=== PATIENT | female | born 1945 | race Caucasian/White ===

== ENCOUNTER 2018-08-09 08:17 | Emergency (ER) | payer MEDICARE, BC ==
[2018-08-09 08:46] VITALS: BP 148/69
--- NOTE | 2018-08-09 09:04 | UC ---
Dizzy HPI HPI Summary: CHIEF COMPLAINT and HPI: This is a 72-year-old female who is normally active and exercises, who notes inability to walk without assistance. Over the past 3 days, she has been unable to walk without assistance. This is an intermittent condition. She denies symptoms of vertigo. She denies chest pain or shortness of breath. She notes that this unsteadiness is the feeling that she might fall and this occurred for 2 hours yesterday. She has also been more "tired." Vital signs in the urgent care center are blood pressure 167/74, temperature 101.6 and pulse 97. Orthostatics were immediately taken and the patient was orthostatic. EKG suggests a atrial fibrillation with a slow ventricular response. VITAL SIGNS & SaO2 REVIEWED. Within normal limits unless noted here. NURSES NOTE REVIEWED."pt with three days of not feeling right, dizzy, nauseous , one bout of diarrhea a day ago. Pt states she has a hx of hypertension and seizures." - History Of Current Complaint Chief Complaint: UCDizziness Stated Complaint: DIZZINESS Time Seen by Provider: 08/09/18 08:22 Pain Intensity: 3 - Allergies/Home Medications Allergies/Adverse Reactions: Allergies Allergy/AdvReac Type Severity Reaction Status Date / Time Penicillins Allergy Rash Verified 08/09/18 08:38 phenytoin [From Dilantin] Allergy Rash Verified 08/09/18 08:38 Home Medications: Home Medications Amlodipine Bes/Olmesartan Med [Sergio 5-20 mg Tablet] 1 tab PO DAILY 08/09/18 [ History Confirmed 08/09/18] Famotidine 40 mg PO DAILY 08/09/18 [History Confirmed 08/09/18] Famotidine [Pepcid] 1 tab PO DAILY 08/09/18 [History Confirmed 08/09/18] Glucosamine Sulfate Dipot Chlr [Glucosamine] 1 tab PO DAILY 08/09/18 [History Confirmed 08/09/18] Lacosamide [Vimpat] 400 mg PO DAILY 08/09/18 [History Confirmed 08/09/18] Multivitamin [Multivitamins] 1 tab PO DAILY 08/09/18 [History Confirmed 08/09/18 ] Pravastatin (NF) [Pravachol (NF)] 40 mg PO 1700 08/09/18 [History Confirmed 02/17] Viactin 1 tab PO DAILY 08/09/18 [History Confirmed 08/09/18] Zoledronic/Mannitol 5 MG/100ML [Reclast 5 MG/100ML] 1 dose IV SEE INSTRUCTIONS 08/09/18 [History Confirmed 08/09/18] PMH/Surg Hx/FS Hx/Imm Hx - Additional Past Medical History Additional PMH: PAST MEDICAL HISTORY- seizures, elevated cholesterol, ischemic colitis. CHRONIC and RECURRENT HEALTH PROBLEM LIST REVIEWED. Information relevant to present complaint: breast cancer. VISIT HISTORY REVIEWED. MEDICATIONS & ALLERGIES REVIEWED. PCN allergy. HYPERTENSION STATUS: amlodipine FAMILY HISTORY: Positive for: hypertension, cardiovascular disease. SOCIAL HISTORY: non-smoker, lives in [facility], is active and exercises. Previously Healthy: Yes - Surgical History Surgical History: Yes Surgery Procedure, Year, and Place: mastectomy, - Social History Alcohol Use: Occasionally Substance Use Type: None Smoking Status (MU): Never Smoked Tobacco Review of Systems All Other Systems Reviewed And Are Negative: Yes Constitutional: Positive: Fever Eyes: Negative: Blurred Vision ENT: Positive: Negative Respiratory: Positive: Negative. Negative: Shortness Of Breath Cardiovascular: Positive: Negative. Negative: Palpitations Gastrointestinal: Positive: Abdominal Pain - mild lower abdominal Genitourinary: Positive: Negative, Dysuria Is Patient Immunocompromised?: No Physical Exam - Summary Physical Exam Summary: Appearance: The patient is well-appearing, is in no pain or distress, and is well-nourished. Eyes: Conjunctiva are clear. Pupils are equal and reactive to light and accommodation. Extra ocular muscle movement is intact. ENT: The hearing is grossly normal, the pharynx is normal, and the TMs are normal. There is no muffled or hoarse voice. No stridor. Neck: The neck is supple and there is no lymphadenopathy. No bruits. Respiratory: The chest is non-tender to palpation and without crepitus. The lungs are clear, there are normal breath sounds, and there is no respiratory distress. No wheezes, rales or rhonchi. Cardiovascular: Heart sounds reveal a regular rate and rhythm. A harsh 2/6 systolic murmur is noted over the anterior chest. This does not radiate. There are no carotid bruits or thrills. Circulation is grossly intact. Abdomen: The abdomen is soft and there is slight lower abdominal discomfort. There is no organomegaly. Bowel sounds are present and within normal limits. No point tenderness at McBurneys point. No CVA tenderness. Musculoskeletal: Strength is intact. The patient moves all extremities. Neurological: The patient is alert. Motor and sensory are examination grossly intact. Speech is normal. Psychological: The patient displays age appropriate behavior, and is conversant. GCS=15. Skin: Negative for rashes. Vital Signs: Initial Vital Signs Temp 101.6 F 08/09/18 08:24 Pulse 94 08/09/18 08:24 Resp 18 08/09/18 08:24 BP 167/74 08/09/18 08:24 Pulse Ox 97 08/09/18 08:24 Dizzy Course/Dx - Course Course Of Treatment: MEDICAL DECISION MAKING and PLAN: This is a 72-year-old female who is normally active and exercises, who notes inability to walk without assistance. Over the past 3 days. This is an intermittent condition. She denies symptoms of vertigo. She denies chest pain or shortness of breath. She notes that this unsteadiness is the feeling that she might fall and this occurred for 2 hours yesterday. She has also been more "tired." Vital signs in the urgent care center are blood pressure 167/74, temperature 101.6 and pulse 97. Orthostatics were immediately taken and the patient was orthostatic. EKG suggests a atrial fibrillation with a slow ventricular response. Review of systems revealed an episode of diarrhea 3 days ago but nothing since then. Patient's past medical history includes seizures, hiatal hernia, one episode of ischemic colitis, GERD, and left breast cancer with mastectomy. She denies any cardiac history, although there is a family history of hypertension and cardiovascular disease. Physical examination shows a 2/6 harsh systolic murmur when she is supine. There is no chest pain or shortness of breath. Mild lower abdominal discomfort. The lungs are clear. The EKG shows inferior nonspecific ST-T changes and irregular atrial activity. Elevated temperature is noted. I discussed the patient's signs and symptoms with the patient and her son. Her history and EKG reading as well as her orthostasis is most consistent with new onset atrial fibrillation. Her new onset murmur is also of concern. The patient will be transferred to the emergency department by ambulance. Her vital signs are stable. MEDICATIONS REVIEWED. HYPERTENSION STATUS REVIEWED WITH PATIENT IF blood pressure is above 120/80. - Differential Dx/Diagnosis Differential Diagnosis/HQI/PQRI: Dysrhythmia, Vasovagal Reaction, Other Provider Diagnosis: Atrial dysrhythmia, Orthostatic dizziness, Murmur, heart Discharge - Sign-Out/Discharge Documenting (check all that apply): Patient Departure All imaging exams completed and their final reports reviewed: No Studies - Discharge Plan Condition: Stable Disposition: TRANS HIGHER LVL OF CARE FAC Referrals: No Primary Care Phys,NOPCP [Primary Care Provider] - Additional Instructions: WE DISCUSSED: At this time. I note that the possibility that you have a new onset of an irregular heartbeat, called atrial fibrillation. I have also noted a heart murmur that may be new. He will also have an elevated temperature and your blood pressure is slightly high. You are being transferred to the emergency department for further evaluation and treatment as needed. - Billing Disposition and Condition Condition: STABLE Disposition: Trans Higher Lvl of Care Fac
== END 2018-08-09 09:49 | disposition short-term general hospital (02) ==
LOC: UCEAST 08:17
DX: I49.9 Cardiac arrhythmia, unspecified (principal); R42 Dizziness and giddiness; R01.1 Cardiac murmur, unspecified; R11.0 Nausea; E78.5 Hyperlipidemia, unspecified; I10 Essential (primary) hypertension; K55.9 Vascular disorder of intestine, unspecified; R56.9 Unspecified convulsions; Z88.0 Allergy status to penicillin; Z88.8 Allergy status to other drugs, medicaments and biological substances
CPT/HCPCS: 99203; G0463

== ENCOUNTER 2018-08-09 10:10 | Observation (INO) | payer MEDICARE, BC ==
--- NOTE | 2018-08-09 10:41 | ED ---
Dizziness - HPI Summary HPI Summary: This patient is a 72 year old F brought in by ambulance to [facility] from [facility] accompanied by her son with a chief complaint of one bout of diarrhea and fatigue for the past three days that worsened last night and this morning with sudden intermittent bouts of dizziness lasting a couple of hours. She states last night she had a bout of dizziness that lasted a few hours with difficulty walking. Patient additionally reports lower abdominal pain yesterday that is currently resolved. This morning she is unable to walk without assistance due to dizziness. Reports concern for new a-fib at [facility] today. Dizziness accompanied by nausea. Denies lightheadedness, headache, CP, and SOB. Symptoms currently resolved with 4mg of Zofran provided by EMS. PMHx of a cavernoma causing seizures that are controlled with Vimpat. Son reports an MRI taken a couple weeks ago that reveals, "fresh bleeding". Regular medications not taken yet. - History Of Current Complaint Chief Complaint: EDGeneral Stated Complaint: DIZZINESS/ABD PAIN/AFIB PER EMS AND NURSE Time Seen by Provider: 08/09/18 10:12 Hx Obtained From: Patient, EMS Onset/Duration: Resolved Timing: Intermittent Episode Lasting - hours Character: Dizzy Aggravating Factor(s): Nothing Alleviating Factor(s): Other - EMS tx Associated Signs And Symptoms: Positive: Nausea, Unsteady Gait, Fever, Inability to Walk. Negative: Chest Pain, SOB - Allergies/Home Medications Allergies/Adverse Reactions: Allergies Allergy/AdvReac Type Severity Reaction Status Date / Time ciprofloxacin Allergy Rash Verified 08/09/18 10:31 Penicillins Allergy Rash Verified 08/09/18 10:22 phenytoin [From Dilantin] Allergy Rash Verified 08/09/18 10:22 Home Medications: Home Medications Lacosamide [Vimpat] 100 mg PO BID 08/09/18 [History Confirmed 08/09/18] Pantoprazole TAB * [Protonix TAB*] 40 mg PO DAILY 08/09/18 [History Confirmed ] PMH/Surg Hx/FS Hx/Imm Hx Cardiovascular History: Reports: Hx Hypertension GI History: Reports: Hx Hiatal Hernia, Other GI Disorders - colitis Neurological History: Reports: Hx Seizures, Other Neuro Impairments/Disorders - cavernoma - Cancer History Cancer Type, Location and Year: breast CA - Surgical History Surgery Procedure, Year, and Place: mastectomy, Infectious Disease History: No Infectious Disease History: Denies: Traveled Outside the [place] in Last 30 Days - Family History Known Family History: Positive: Hypertension - Social History Alcohol Use: Weekly Substance Use Type: Reports: None Smoking Status (MU): Never Smoked Tobacco Review of Systems Positive: Fever, Fatigue Negative: Chest Pain Negative: Shortness Of Breath Positive: Abdominal Pain, Diarrhea, Nausea Neurological: Other - dizziness All Other Systems Reviewed And Are Negative: Yes Physical Exam - Summary Physical Exam Summary: Appearance: Well-appearing, Well-nourished, lying in bed comfortably Skin: Warm, dry, no obvious rash Eyes: sclera anicteric, no conjunctival pallor ENT: mucous membranes moist, pharynx appears normal Neck: Supple, nontender Respiratory: Clear to auscultation, no signs of respiratory distress Cardiovascular: Normal S1, S2. No murmurs. Normal distal pulses in tibial and radial bilaterally. Abdomen: Soft, nontender, normal active bowel sounds present Musculoskeletal: Normal, Strength/ROM Intact Neurological: A&Ox3, awake and alert, mentation is normal, speech is fluent and appropriate, no ataxia Psychiatric: affect is normal, does not appear anxious or depressed Triage Information Reviewed: Yes Vital Signs On Initial Exam: Initial Vitals Temp Pulse Resp BP Pulse Ox 101.4 F 86 26 142/73 99 08/09/18 10:17 08/09/18 10:17 08/09/18 10:17 08/09/18 10:17 08/09/18 10:17 Vital Signs Reviewed: Yes - Diablo Coma Scale Best Eye Response: 4 - Spontaneous Best Motor Response: 6 - Obeys Commands Best Verbal Response: 5 - Oriented Coma Scale Total: 15 Diagnostics - Vital Signs Vital Signs Temp Pulse Resp BP Pulse Ox 08/09/18 10:18 86 18 142/73 99 08/09/18 10:17 101.4 F 86 11 142/73 99 - Laboratory Result Diagrams: 08/10/18 08:47 08/10/18 08:47 Lab Statement: Any lab studies that have been ordered have been reviewed, and results considered in the medical decision making process. - Radiology CXR Radiology Interpretation Completed By: Radiologist Summary of Radiographic Findings: FINDINGS CONSISTENT WITH COPD, NO EVIDENCE FOR ACUTE DISEASE. ED Physician has reviewed this report. - CT Brain MRI CT Interpretation Completed By: Radiologist Summary of CT Findings: Approximately 2.2 cm lesion within the right frontal lobe, appearance most. suggestive of cavernoma. Presence of small foci of T1 hyperintensity within the. lesion and adjacent vasogenic edema are suggestive of associated. recent/subacute hemorrhage. ED Physician has reviewed this report. - EKG 1044 Cardiac Rate: NL - 89 BPM EKG Rhythm: Sinus Rhythm EKG Comparison: Other - A-fib at 92 BPM at 0829 taken at [facility] 08/09/18 Summary of EKG Findings: NSR at 89 BPM, P waves, QRS complex, and T waves are within normal limits, T waves and intervals are normal, no ischemic changes. This is a normal EKG. Re-Evaluation - Re-Evaluation 1 Re-Evaluation Time: 13:35 Change: Unchanged - Patient remains nauseaous and dizzy. Unable to ambulate without assistance. Dizzy Course/Dx - Course Course Of Treatment: This is a 72-year-old woman with a 2 to three-day history of transient diarrhea followed by intermittent vertigo with some gait ataxia and now fever. With respect to the fever, her urinalysis does show evidence of infection and I suspect this is the source of the fever. Chest x-ray is clear. Lactate is low and the patient does not appear toxic or septic. With respect to her vertigo it clearly seems a peripheral nature based on her history and physical exam. There was also some concern that she may have had atrial fibrillation, but I have reviewed the tracing from [facility] care and this is clearly a sinus rhythm which the machine misinterpreted. I do not believe the patient had atrial fibrillation and she certainly is not atrial fibrillation now. She is getting a dose of IV Rocephin and some oral meclizine and we will see how she does with her gait. She may ultimately need to be admitted for observation if she is unable to walk. Upon re-evaluation patient's symptoms persist and she is unable to ambulate without assistance. At 13:41 Dr. Reyez , hospitalist, agrees to admit patient for observation, he recommends getting an MRI to rule out further bleeding. Brain MRI reveals, "Approximately 2.2 cm lesion within the right frontal lobe, appearance most. suggestive of cavernoma. Presence of small foci of T1 hyperintensity within the. lesion and adjacent vasogenic edema are suggestive of associated. recent/subacute hemorrhage." Case discussed with Dr. Kwong, who is now covering hospitalist at 1817. He recommends consultation with Dr. Mcgowan, neurology. Case discussed with Roslyn' DONNA who will have Roslyn get back to Dr. Kwong. - Diagnoses Provider Diagnoses: UTI (urinary tract infection), Vertigo - Provider Notifications Discussed Care Of Patient With: Abdon Reyez Time Discussed With Above Provider: 13:41 Instructed by Provider To: Admit As Inpatient Discharge - Sign-Out/Discharge Documenting (check all that apply): Patient Departure - admit Patient Received Moderate/Deep Sedation with Procedure: No - Discharge Plan Condition: Stable Disposition: ADMITTED TO [facility] - Billing Disposition and Condition Condition: STABLE Disposition: Admitted to [facility] - Attestation Statements Document Initiated by Jamiee: Yes Documenting Scribe: Fadia Nix Provider For Whom Karelibe is Documenting (Include Credential): Sheldon Lino MD Scribe Attestation: IFadia, scribed for Sheldon Lino MD on 08/12/18 at 0948. Scribe Documentation Reviewed: Yes Provider Attestation: The documentation as recorded by the karelibeFadia accurately reflects the service I personally performed and the decisions made by me, Sheldon Lino MD Status of Scribe Document: Viewed
[2018-08-09 10:59] LABS: Urine Appearance Cloudy; Urine Bacteria Absent (Absent); Urine Bilirubin Negative (Negative); Urine Blood 2+ (Negative); Urine Color Yellow; Urine Glucose Negative (Negative); Urine Ketones Negative (Negative); Urine Nitrite Negative (Negative); Urine Protein Negative (Negative); Urine Red Blood Cell 2+(6-10/hpf) (Absent); Urine Specific Gravity 1.017 (1.010-1.030); Urine Squamous Epithelial Cell Present (Absent); Urine Urobilinogen Negative (Negative); Urine White Blood Cell 3+(>20/hpf) (Absent)
[2018-08-09] MEDS ORDERED: cefTRIAXone(*) 1 GM in NS 0.9% 50 ML* 50 ML IVPB ONE (11:02)
[2018-08-09 11:03] LABS: ABS Lymphocytes 0.9 10^3/ul (1.0-4.8); ABS Monocytes 0.9 10^3/ul (0-0.8); ABS Neutrophils 10.4 10^3/ul (1.5-7.7); Eosinophil % 0.1 %; Hematocrit 34 % (35-47); Hemoglobin 11.2 g/dL (12.0-16.0); Mean Corpuscular HGB Conc 33 g/dL (31-36); Mean Corpuscular Hemoglobin 31 pg (27-31); Mean Corpuscular Volume 92 fL (80-97); Mean Platelet Volume 8.4 fL (7.4-10.4); Platelet Count 211 10^3/uL (150-450); Red Blood Count 3.63 10^6 /uL (3.70-4.87); Red Cell Distribution Width 13 % (10.5-15); White Blood Count 12.2 10^3/uL (3.5-10.8)
[2018-08-09 11:23] LABS: Albumin 3.9 g/dL (3.2-5.2); Albumin/Globulin Ratio 1.4 (1-3); BUN/Creatinine Ratio 16.3 (8-20); C Reactive Protein 51.55 mg/L (<8.01); Calcium 9.1 mg/dL (8.6-10.3); EGFR African American 85.6 (>60); EGFR Non-African American 70.7 (>60); Globulin 2.8 g/dL (2-4); Magnesium 1.8 mg/dL (1.9-2.7); Potassium 3.9 mmol/L (3.5-5.0); Total Bilirubin 0.5 mg/dL (0.2-1.0); Total Protein 6.7 g/dL (6.4-8.9); Troponin I 0.01 ng/mL (<0.04)
[2018-08-09] MEDS ORDERED: Meclizine TAB* 12.5 MG PO ONE (12:03)
[2018-08-09 12:26] LABS: TSH (Thyroid Stimulating Horm) 0.65 mcIU/mL (0.34-5.60)
[2018-08-09] MEDS ORDERED: Magnesium Sulfate 2 GM IV* 2 GM/50 ML BAG IVPB ONE (14:50)
[2018-08-09] MEDS ORDERED: Lorazepam PYXIS KEY PRN (16:30)
[2018-08-09] MEDS ORDERED: LORazepam INJ* 2 MG/ML 1 ML VIAL IV PUSH STA (16:30)
[2018-08-09] MEDS ORDERED: Atorvastatin* 10 MG TAB PO SCH (17:00)
[2018-08-09] MEDS ORDERED: Lorazepam PYXIS KEY ONE (17:02)
--- NOTE | 2018-08-09 18:08 | HP ---
ADMITTING HISTORY AND PHYSICAL: DATE OF ADMISSION: 08/09/18 CHIEF COMPLAINT: Difficulty ambulating. 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 The following day; however, she felt that she was unable to walk without assistance given significant weakness and easy fatigability. Once again, this was intermittent in its symptomatology. She then began developing lower abdominal pain as well. She lastly presented with vertigo and this concerned her, which brought her to urgent care. In urgent care this morning, she was seen by the ER physician, who thought that she had atrial fibrillation on her EKG and was sent to the ER for specifically to be evaluated for atrial fibrillation. However, on my review, the rhythms both in the urgent care as well as in EMS as well as in our ER were normal sinus and no signs of atrial fibrillation were seen. Furthermore, the patient was complaining more of vertigo rather than any form of palpitations and was greatly concerned about being told that she did have some atrial fibrillation. 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 PAST SURGICAL HISTORY: Status post arthroscopic knee surgery and left elbow fracture status post spinning. ALLERGIES: PENICILLIN and DILANTIN, both of which she mentions causes her to "break out." CIPROFLOXACIN causes hives. FAMILY HISTORY: Her sister has IBS. Niece has Crohn's. Brother has melanoma. Father at the age of 66 due to a heart disease. Mother had a CVA at the age of 66. SOCIAL HISTORY: She denies any history of smoking, illicit drug use, or alcohol abuse. She lives in [place], the [facility] and mentions that she is here visiting her son since her just recently 2 months prior. REVIEW OF SYSTEMS: Diarrhea, which occurred few days before, but that is now resolved. Still complains of some lower abdominal pain, but denies any dysuria , although she did mention that she did have some increased urinary frequency the night prior to admission. She also complained of some fever this morning at 101 degrees that also was one of the reasons that led her to seek help in urgent care. She denies any vomiting, although she did have some nausea. She denies any myalgias, arthralgias, nor new skin lesion. The rest of the 14- point review of systems other than what was described are otherwise unremarkable. PHYSICAL EXAMINATION GENERAL APPEARANCE: The patient is awake, not in acute distress. VITAL SIGNS: Most recent vital signs of records shows blood pressure of 143/72 , 99% saturation, 17 per minute respiratory rate, 91 per minute heart rate. HEENT: Normocephalic, atraumatic. PERRLA. Extraocular muscles intact. Negative for icterus. Moist oral mucosa. Negative throat erythema. NECK: Soft, supple with no cervical lymphadenopathy. No JVD. CHEST: Clear to auscultation bilaterally. Good air entry. No wheezes, rales, or rhonchi. HEART: S1 and S2 within normal limits. Regular rate and rhythm. No murmurs, rubs, or gallops. ABDOMEN: Soft, nondistended, nontender. Normoactive bowel sounds x4 quadrants. EXTREMITIES: No cyanosis, clubbing, or edema. PSYCHIATRIC: No active psychosis, depression, or suicidal or homicidal ideation. SKIN: Warm to touch. DIAGNOSTIC STUDIES/LAB DATA: Most recent and pertinent laboratories drawn show CBC with a mildly elevated WBC of 12.2, H and H of 11.2 and 34, platelets of 211. Sodium, potassium, BUN, and creatinine as well as her LFTs and troponins were all found to be within normal level. CRP is mildly elevated at 51.5. Urinalysis shows specific gravity of 1.017 with 2+ blood, 3+ leukocyte esterase, absent bacteria, and negative for glucose. Chest x-ray shows no acute cardiopulmonary disease, but with possible evidence of COPD. EKG shows normal sinus rhythm, 89 beats per minute with no ST-segment changes with QTc of 429 milliseconds. ASSESSMENT AND PLAN: The patient is a 72-year-old lady with history of breast cancer, now in remission, hypertension, as well as hypercholesterolemia, being admitted for vertigo, likely due to benign paroxysmal positional vertigo. However, the patient also has bleeding bleeding cavernoma that will need to be ruled out with MRI. 1. Vertigo, likely due to benign paroxysmal positional vertigo. The patient is neurologically intact except for her vertigo. However, she could have an isolated lacunar infract, which is unlikely at this point given her history does not seem to point to this. What is concerning, however, is her history of bleeding cavernoma, where she mentions that she had seen her neurologist a few weeks back, who mentioned this diagnosis and hence, we will obtain an MRI to also observe if this is actively bleeding. Dr. Lino as well as ER staff have been informed not to take the patient up to the floors until the results of the MRI is read. We will place the patient on meclizine for suppression as we await above workup. We will also consult PT/OT to do Monse-Hallpike maneuver and if positive to perform Berto's maneuver. Will also evaluate a possible lacunar infarct as cause of vertigo with MRI. Spoke with radiologist to obtain MRI STAT on Saturday as discussed with [facility]. 2. Urinary tract infection. The patient does have some allergies to PENICILLIN and per patient, may have caused her to break out; however, it is unclear whether she did have hives. She did receive Rocephin in the ER few hours back at around 11 o'clock and it is now 3 o'clock in the afternoon. She reports no signs and symptoms that would be consistent with a primary allergic reaction as well as anaphylaxis and hence we will continue this at this time given her multiple and broad drug allergies. 3. Hypertension. Continue her home medications as prescribed. 4. Gastroesophageal reflux disease. We will hold famotidine and we will continue PPI. 5. DVT prophylaxis. We will place the patient on SCDs given history of bleeding cavernoma in her head. 6. Disposition. For PT eval as discussed. [id number]/[facility] #: [id number] [facility]
[2018-08-09] MEDS ORDERED: Acetaminophen TAB* 325 MG PO PRN (20:26)
[2018-08-09] MEDS ORDERED: Lacosamide TAB* 100 MG TAB PO SCH (21:00)
[2018-08-09] MEDS: Meclizine TAB* 12.5 MG PO SCH (21:40)
[2018-08-09] MEDS: Lacosamide TAB* 100 MG TAB PO SCH ×3 (21:41→22:36)
[2018-08-09] MEDS: Famotidine TAB* 20 MG PO SCH (23:00)
[2018-08-09] MEDS: Atorvastatin* 40 MG TAB PO SCH (23:00)
[2018-08-10 00:40] LABS: INR 1.1 (0.82-1.09)
--- NOTE | 2018-08-10 03:57 | CONS ---
CONSULTATION NOTE: DATE OF CONSULT: 08/10/18 HISTORY OF PRESENT ILLNESS: The patient is a very pleasant 72-year-old female with a history of seizures and right frontal cavernoma. The patient reports that she has been followed by Dr. Parks in [facility] for that. She had an episode of bleeding 7 years ago, but at that time, she was advised not to have it operated because of the proximity to the motor context. She had been followed with serial MRIs and last MRI was done 2 weeks ago that revealed a recent hemorrhage as the patient reports. The patient was visiting her son who is a musician and a teacher of music in [place] and she noticed that approximately 3 days ago, she started having episodes of diarrhea with nausea and some difficulty with her balance. The patient had generalized weakness as well as difficulty walking. For this reason, she went to the [facility] and at that time, she was thought to have atrial fibrillation based on EKG findings. This was not confirmed after interpretation of the EKG, but because of a history of cavernoma, she underwent an MRI of her brain that revealed a right frontal possible cavernoma formation with mild edema and possible subacute hemorrhage. The patient was currently admitted by the Hospitalist as she was also diagnosed with a UTI, and benign paroxysmal positional vertigo. The patient reports that she is a . 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 And she has 2 sons. PAST MEDICAL HISTORY: 1. Cavernoma formation. 2. Seizure. 3. Hypertension. 4. Hypercholesterolemia. 5. GERD. 6. Breast cancer 30 years ago. 7. Hiatal hernia. 8. Ischemic colitis. PAST SURGICAL HISTORY: 1. Arthroscopic knee surgery. 2. Left elbow fracture, status post surgery. MEDICATIONS: The patient reports that she has been on Vimpat for her seizures. ALLERGIES: PENICILLIN and DILANTIN. FAMILY HISTORY: IBS, Crohn's, melanoma, heart disease, CVA. SOCIAL HISTORY: The patient denies any history of tobacco use. The patient will drink alcohol socially and denies recreational drug use. PHYSICAL EXAM: The patient is not in acute distress. She is awake and alert. She is oriented x3. Her pupils are equal and reactive. Cranial nerves II through XII are grossly intact. Motor 4 to 5/5 in all extremities. No pronator drift. Sensory grossly intact to light touch. Deep tendon reflexes +1 bilaterally. No clonus. No Babinski. Norman's negative. Straight leg raise test negative in sitting position. The patient has no tenderness to palpation of the thoracic and lumbar spine. She has free range of motion of cervical spine. No signs of meningeal irritation. DIAGNOSTIC STUDIES/LAB DATA: The patient had an MRI of her brain revealing right possible frontal cavernous malformation with surrounding edema and foci of increased signal in T1 and T2, possibly representing subacute hemorrhage. The patient had also a CT scan of the brain, revealing right frontal possible cavernous malformation with calcifications and possible mild surrounding edema. ASSESSMENT: The patient is a pleasant 72-year-old female with a history of breast cancer, right frontal cavernous malformation, and seizure, who was admitted for benign paroxysmal positional vertigo and urinary tract infection. PLAN: The patient at this point is doing very well. We discussed in extent imaging findings. Unfortunately, there is no prior imaging available to confirm for new elements of hemorrhage. Based on the patient's description, the patient had recent MRI two weeks ago that revealed a new bleed at that time. The patient was followed by her neurologist in [facility]. Discussed in extent imaging findings as well as possible treatment options. The patient reports that she would not like to consider surgical intervention at this time even if it was an option because she was told that this lesion was very close to the motor cortex. We discussed also with the patient possibility of transferring to [place] or [place] in order to have her cavernoma addressed. The patient at this point refused the transfer. She expressed the desire to have a followup with her doctor in [facility]. She understands the possibility of recurrent hemorrhage and loss of neurological function, hemiparesis, paralysis, and even . We will be happy to obtain a set of coags and follow the patient. Thank you for allowing us to participate in the care of this patient. Please do not hesitate to contact our office in case you have any further questions or concerns regarding the care of this patient. [id number]/[facility] #: [id number] JOSE
[2018-08-10] MEDS: Meclizine TAB* 12.5 MG PO SCH ×3 (05:12→20:36)
[2018-08-10 08:53] LABS: ABS Eosinophils 0.1 10^3/ul (0-0.6); ABS Lymphocytes 1.2 10^3/ul (1.0-4.8); ABS Monocytes 0.7 10^3/ul (0-0.8); ABS Neutrophils 6.2 10^3/ul (1.5-7.7); Eosinophil % 1.6 %; Hematocrit 34 % (35-47); Hemoglobin 11.3 g/dL (12.0-16.0); Lymphocyte % 14.4 %; Mean Corpuscular HGB Conc 33 g/dL (31-36); Mean Corpuscular Hemoglobin 31 pg (27-31); Mean Corpuscular Volume 93 fL (80-97); Mean Platelet Volume 8.3 fL (7.4-10.4); Platelet Count 211 10^3/uL (150-450); Red Blood Count 3.67 10^6 /uL (3.70-4.87); Red Cell Distribution Width 13 % (10.5-15); White Blood Count 8.2 10^3/uL (3.5-10.8)
[2018-08-10] MEDS ORDERED: Pantoprazole TAB * 40 MG TAB PO SCH ×2 (09:00→21:00)
[2018-08-10 09:11] LABS: Albumin 3.7 g/dL (3.2-5.2); Albumin/Globulin Ratio 1.2 (1-3); BUN/Creatinine Ratio 16.3 (8-20); EGFR African American 85.6 (>60); EGFR Non-African American 70.7 (>60); Magnesium 2.2 mg/dL (1.9-2.7); Phosphorus 3.3 mg/dL (2.5-5.0); Potassium 3.8 mmol/L (3.5-5.0); Total Bilirubin 0.5 mg/dL (0.2-1.0); Total Protein 6.7 g/dL (6.4-8.9)
[2018-08-10] MEDS: Valsartan TAB* 160 MG PO SCH (10:44)
[2018-08-10] MEDS: Famotidine TAB* 20 MG PO SCH (10:44)
[2018-08-10] MEDS: cefTRIAXone(*) 1 GM in NS 0.9% 50 ML* 50 ML IVPB SCH (10:44)
[2018-08-10] MEDS: Lacosamide TAB* 100 MG TAB PO SCH ×3 (10:44→22:28)
[2018-08-10] MEDS: amLODIPine TAB* 5 MG PO SCH (10:44)
--- NOTE | 2018-08-10 10:59 | PN ---
Progress Note - Progress Note SOAP: Patient seen and examined. No events ON.Ambulates. No nausea. No BARR Neurologically intact. CT stable. Repeat CT in am. Discussed in extend regarding patient's condition. Offered option again to transfer patient to [place]. Patient would like to follow up with her neurosurgeon in [facility]. Patient understands risks and benefits of this option. Would still like to travel to [facility] on her own. Will repeat CT in am. Briseyda Downs MD <James Downs - Last Filed: 08/10/18 18:56> - Progress Note Date of Service: 08/10/18 SOAP: Subjective: [Pt admitted with vertigo, history of cavernoma. She presented [facility]. She reports history of diarrhea and generalized fatigue beginning on Saturday after a long walk with a friend. She states that her friend did notice that her gait was slightly abnormal but the patient had said that she was feeling tired so her friend did not think anything was wrong. The patient then rode the bus from [facility] to [place] on . She reports sleeping the entire way on the bus ride and then having some difficulty ambulating and getting off of the bus upon arrival. She states that she was experiencing dizziness, difficulty with her balance, feeling like she was spinning, and like she was going to fall over. The vertigo would improve when she would lay down with her eyes closed. She has a history of cavernoma and seizure which she states typically presents initially with left upper extremity symptoms. She has not experienced this since the dizziness began. She has followed with a neurologist, Dr. Lowell Mendosa, for the cavernoma and has been seen by multiple neurosurgeons for surgical consultation over the past 7 years. It has been decided to monitor the cavernoma and not undergo surgery. She most recently had MRI brain on 07/24/18 and followed up with Dr. Mendosa who reported subacute bleed at the cavernoma site. The plan remained to monitor the lesion and no changes in medication were made. She was feeling well until Saturday last week when she began experiencing the diarrhea, abdominal discomfort and vertigo. Her son is present with her today and provides additional details to her history. He has been in contact with neurologist solution maker, Dr. Muniz, at [facility] who he reports would like to be able to view the imaging she has had done here at [facility] to be able to compare to the [facility] MRI on 07/24. Currently, she reports resolution of the vertigo. She is able to stand and ambulate without difficulty. She has been treated with meclizine. She is also being treated with antibiotics for a UTI. She denies headache, nausea, dizziness , lightheadedness, vision change, gait instability, numbness, tingling, weakness and pain in the upper or lower extremities, seizure and aphasia. ] Objective: [ Vital Signs: Temp Pulse Resp BP Pulse Ox 97.8 F 80 20 121/55 92 08/10/18 07:36 08/10/18 07:36 08/10/18 07:36 08/10/18 07:36 08/10/18 07:36 General: Sitting up on bedside, NAD Neuro: Speech is clear, answers questions appropriately and able to provider a full history. CN II-XII intact. Oriented to person, place, date and situation. No pronator drift. PERRL, EOMI. Strength 5/5 bilateral upper and lower extremities. Sensation intact throughout. Hoffmans negative] Assessment: [Pt admitted with vertigo, improved since admission. History of cavernoma, monitoring with recent MRI on 07/24 and again on 08/09. Improved and stable.] Plan: [1. Repeat CT brain this morning 2. Obtain MRI imaging from [facility], at least need report today. 3. PT] <Krissy Negron - Last Filed: 08/19/18 11:22>
--- NOTE | 2018-08-10 14:27 | PN ---
Subjective Date of Service: 08/10/18 Interval History: Pt seen and examined. Meds and labs reviewed. No O/N issues CC: Feels better. Vertigo resolved. ROS: Denied BARR/dizziness, F/C, N/V, CP, SOB, increased cough, sputum production , abd pain, diarrhea, constipation, dysuria, myalgias, arthralgias, throat pain , and new skin lesions. The rest of the 14 point ROS are unremarkable. PHYSICAL EXAM: GEN APPEARANCE: Awake, not in acute distress HEENT: NC/AT, PERRLA, moist oral mucosa, (-) throat erythema NECK: Soft, supple, (-) cervical LAD, (-)JVD HEART: S1S2 WNL, RRR, No MRG CHEST: CTA, BL, GAE, No W/R/R ABD: Soft, ND/NT, NABS 4x Q EXT: No C/C/E SKIN: Warm to touch PSYCH: No active psychosis, hallucinations, depression, SI/HI Objective Active Medications: Acetaminophen (Tylenol Tab*) 650 mg PO Q6H PRN PRN Reason: FEVER/PAIN Last Admin: 08/09/18 20:32 Dose: 650 mg Amlodipine Besylate (Norvasc Tab*) 5 mg PO DAILY [facility] Last Admin: 08/10/18 10:44 Dose: 5 mg Atorvastatin Calcium (Lipitor*) 40 mg PO 1700 [facility]; Protocol Last Admin: 08/09/18 23:00 Dose: 40 mg Famotidine (Pepcid Tab*) 40 mg PO DAILY [facility] Last Admin: 08/10/18 10:44 Dose: 40 mg Ceftriaxone Sodium 1 gm/ (Sodium Chloride) 50 mls @ 200 mls/hr IVPB Q24H [facility] Last Admin: 08/10/18 10:44 Dose: 200 mls/hr Lacosamide (Vimpat Tab*) 200 mg PO 2200 [facility] Last Admin: 08/09/18 22:06 Dose: 200 mg Lacosamide (Vimpat Tab*) 100 mg PO 1000,1500 [facility] Last Admin: 08/10/18 10:44 Dose: 100 mg Meclizine HCl (Antivert Tab*) 25 mg PO Q8HR [facility] Last Admin: 08/10/18 05:12 Dose: 25 mg Pantoprazole Sodium (Protonix Tab*) 40 mg PO 2100 [facility] Valsartan (Diovan Tab*) 160 mg PO DAILY [facility] Last Admin: 08/10/18 10:44 Dose: 160 mg Vital Signs - 8 hr 08/10/18 07:36 Temperature 97.8 F Pulse Rate 80 Respiratory 20 Rate Blood Pressure 121/55 (mmHg) O2 Sat by Pulse 92 Oximetry Oxygen Devices in Use Now: None Result Diagrams: 08/10/18 08:47 08/10/18 08:47 Microbiology and Other Data: Microbiology 08/09/18 10:52 Aerobic Blood Culture - Preliminary Blood Venous No Growth Day 1 Anaerobic Blood Culture - Preliminary No Growth Day 1 08/09/18 10:45 Urine Culture - Final Urine Assess/Plan/Problems-Billing Assessment: - Patient Problems (1) Cavernoma Current Visit: Yes Status: Acute Code(s): D18.00 - HEMANGIOMA UNSPECIFIED SITE SNOMED Code(s): 885492049 Comment: -MRI (08/09): ~2.2 cm lesion within the right frontal lobe suggestive of known cavernoma; likelysubacute hemorrhage consistent w/pts hx -Repeat CT today shows no change from yesterdays CT -D/W Dr. Butler and will continue to monitor pt o/n for repeat CT in AM -Per Dr. Butler, pt offered possible transfer but pt clarified she is being followed by her Neurologist and NeuroS[facility] and prefers conservative management at this point. Per Dr. Butler, risk of bleeding for 1st time annually is 0.5% , and 16% for the second (2) Vertigo Current Visit: Yes Status: Acute Code(s): R42 - DIZZINESS AND GIDDINESS SNOMED Code(s): 002224137 Comment: -Likely unrelated to above -No S/S consistent w/posterior circulation/lacunar infarct CVA -Continue Meclizine and consider to make PRN in 2 days (3) UTI (urinary tract infection) Current Visit: Yes Status: Acute Comment: -Blood Cx (-) x 1 day -Urine Cx: (-); Final -Given quick resolution of urinary symptoms, absence of sepsis, and reassuring results of cultures, will continue Abx for 1 more day as long as cultures are unremarkable and clinical course continues to improve. (4) HTN (hypertension) Current Visit: Yes Status: Acute Code(s): I10 - ESSENTIAL (PRIMARY) HYPERTENSION SNOMED Code(s): 95471953 Comment: -Well-controlled -Continue Amlodipine and Valsartan (5) DVT prophylaxis Current Visit: Yes Status: Acute Code(s): Z29.9 - ENCOUNTER FOR PROPHYLACTIC MEASURES, UNSPECIFIED SNOMED Code(s): 489914149 Comment: -Continue SCDs Status and Disposition: -For repeat CT of head per Dr. Butler -F/U Cx -For possible D/C in AM
[2018-08-10] MEDS: Atorvastatin* 40 MG TAB PO SCH (17:50)
[2018-08-10] MEDS ORDERED: Diphenoxylat/Atrop 2.5-0.025M* 1 TAB PO ONE (22:22)
[2018-08-10] MEDS ORDERED: Ondansetron INJ* 2 MG/ML VIAL IV PRN (23:39)
[2018-08-10] MEDS ORDERED: Loperamide CAP* 2 MG PO PRN (23:40)
[2018-08-11] MEDS: Meclizine TAB* 12.5 MG PO SCH (05:40)
[2018-08-11 08:21] VITALS: BP 132/67
[2018-08-11] MEDS: Famotidine TAB* 20 MG PO SCH (09:10)
[2018-08-11] MEDS: amLODIPine TAB* 5 MG PO SCH (09:11)
[2018-08-11] MEDS: Valsartan TAB* 160 MG PO SCH (09:11)
[2018-08-11] MEDS: cefTRIAXone(*) 1 GM in NS 0.9% 50 ML* 50 ML IVPB SCH (09:12)
[2018-08-11] MEDS: Lacosamide TAB* 100 MG TAB PO SCH (09:14)
--- NOTE | 2018-08-11 21:03 | DS ---
DISCHARGE SUMMARY: ADDENDUM: DATE OF DISCHARGE: 08/11/18 DISCHARGE MEDICATIONS: Zofran 4 mg p.o. q.6 p.r.n. [id number]/[facility] #: [id number] MTDD
--- NOTE | 2018-08-11 22:35 | DS ---
ADDENDUM NOW INCLUDED ON THIS REPORT CC: Dr. Sheldon Lino; Dr. Downs; DONNA Meyers * DISCHARGE SUMMARY: DATE OF ADMISSION: DATE OF DISCHARGE: 08/11/18 DISCHARGE CONDITION: Stable. DISCHARGE DISPOSITION: Home. DISCHARGE DIAGNOSES: Are as follows: 1. Vertigo, likely due to benign paroxysmal positional vertigo. 2. Cavernoma, subacute bleeding, stable; the patient declined any neurosurgical re- evaluation and transfer for cavernoma given the patient is being followed by her neurosurgeon and neurologist in [facility], and we will defer. 3. Urinary tract infection, improved. 4. Hypertension, history of. DISCHARGE MEDICATIONS: Are as follows: 1. Sergio 5/20 mg tablets p.o. daily. 2. Lacosamide 400 mg p.o. q.h.s. 3. Lacosamide 100 mg p.o. b.i.d.. 4. Meclizine 25 mg p.o. q.8 for 21 days, then p.r.n. q.8 thereafter. 5. Pantoprazole 40 mg p.o. daily. 6. Pravastatin 40 mg p.o. daily. 7. Cefdinir 300 mg p.o. b.i.d. for 3 more days. 8. Famotidine 40 mg p.o. daily. 9. Glucosamine sulfate 1500 mg p.o. daily. 10. Floranex tabs 2 tablets p.o. daily for 6 days. 11. Multivitamins 1 tab p.o. daily. 12. Viactiv 1 tab p.o. daily. 13. 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 HISTORY OF PRESENT ILLNESS/HOSPITAL COURSE: The patient is a 72-year-old lady with known history of seizure disorder as well as subacute bleeding cavernoma in her right temporal area, where she mentions she just had a recent MRI about 1 or 2 weeks prior in [place] and was told that she has a subacute bleeding cavernoma and she had elected to monitor this conservatively given that this is very close to her motor cortex. This was once again offered to her by Dr. Downs whether she can be referred to a higher level tertiary care facility, and she declined and did not want to get transferred and hence we have deferred. During her hospital course, she was admitted for vertigo and other central causes of vertigo such as CVA as well as a nearby cavernoma and the appropriate structures were not supported. The patient denied any history of upper respiratory tract symptoms and hence vertigo is likely due to BPPV. The patient had been referred to Physical Therapy, who then recommended further physical therapy rehab as an outpatient PT and hence will defer. She was also diagnosed with UTI and likely caused the GI symptoms she mentioned such as loose bowel movements and abdominal discomfort preceding her hospitalization. Her diarrhea has since resolved and likely due to her recently diagnosed and improved UTI. The patient had been advised to follow up and/or call her PCP within 3 days post discharge. She was informed that an electronic prescription for PT has been made for her and to make sure that she sets up an appointment with outpatient PT in [facility] where she lives and/or nearby her residence. She was advised that if her symptoms resume or develop new ones or feel unwell for any reason, to call her PCP first. If her PCP is unable to entertain her due to scheduling issues alone, she was advised to call [facility] if the issue is nonemergent. She was advised to call my office regarding any questions, concerns, or further clarifications regarding her discharge plans and /or prescriptions and to take her medications as prescribed. REVIEW OF SYSTEMS: The patient currently denies of any headaches, dizziness, fever, chills, nausea, vomiting, chest pain, shortness of breath, increased cough and/or sputum production, abdominal pain, diarrhea, constipation, pain and /or increased frequency in urination, myalgias, arthralgias, throat pain, or new skin lesions. The rest of the 14-point review of systems other than what was described are otherwise unremarkable. She did complain of some vertigo last night but has since resolved. PHYSICAL EXAM: Shows her most recent vital signs of records with blood pressure of 132/67, 16 per minute respiratory rate, heart rate of 74, and 98.1 degree Fahrenheit. General Appearance: The patient is awake, alert, and oriented, not in acute distress. HEENT: Normocephalic, atraumatic. PERRLA. Extraocular muscles intact. Negative for icterus. Moist oral mucosa. Negative throat erythema. Neck is soft, supple with no cervical lymphadenopathy , no JVD. Heart: S1, S2, within normal limits. Regular rate and rhythm. No murmurs, rubs, or gallops. Chest: Clear to auscultation bilaterally. Good air entry. No wheezes, rales, or rhonchi. Abdomen is soft, nondistended, nontender. Normoactive bowel sounds x4 quadrants. Extremities: No cyanosis, clubbing, or edema. Psychiatric: No active psychosis, depression, suicidal or homicidal ideation. Skin: Warm to touch. TIME SPENT: The total time spent evaluating the patient, reviewing pertinent data, and appropriate documentation is 45 minutes. ADDENDUM: DATE OF DISCHARGE: 08/11/18 DISCHARGE MEDICATIONS: Zofran 4 mg p.o. q.6 p.r.n. [id number]/[facility] #: [id number] A- [id number]/[facility] #: [id number] MTDD
== END 2018-08-11 13:30 | disposition home or self-care (01) ==
LOC: ED 10:10 → MEDTELE 14:42
PROVIDERS: ADMIT Student in an Organized Health Care Education/Training Program; ATTEND Student in an Organized Health Care Education/Training Program
DX: R42 Dizziness and giddiness (principal); D18.02 Hemangioma of intracranial structures; N39.0 Urinary tract infection, site not specified; I10 Essential (primary) hypertension; R53.83 Other fatigue; G40.909 Epilepsy, unspecified, not intractable, without status epilepticus; R19.7 Diarrhea, unspecified; R11.0 Nausea; Z88.0 Allergy status to penicillin; R50.9 Fever, unspecified; Z85.3 Personal history of malignant neoplasm of breast; E78.00 Pure hypercholesterolemia, unspecified; K21.9 Gastro-esophageal reflux disease without esophagitis; Z87.19 Personal history of other diseases of the digestive system; Z79.899 Other long term (current) drug therapy
CPT/HCPCS: 36415; 70450; 70551; 71046; 80053; 81003; 81015; 83605; 83735; 84100; 84443; 84484; 85025; 85610; 86140; 87040; 87086; 93005; 96365; 96366; 96367; 96375; 99285; A9270-GY; G0378; G8978-GP-CI; G8979-GP-CI; G8980-GP-CI; J0696; J2060; J2405; J3475